=== PATIENT | female | born 1995 | race African-American/Black ===

== ENCOUNTER 2019-05-17 20:12 | Emergency (ER) | payer SELFPAY ==
[~2019-05-17] VITALS: Ht 165.1 cm; Wt 99.5 kg
[2019-05-17 20:19] VITALS: Ht 165.1 cm; Wt 99.5 kg
[2019-05-17 21:08] LABS: BASOPHIL % 0.3 % (0-2)
[2019-05-17 21:13] LABS: PLATELET COUNT 411 x10^3mcL (130-400); RED CELL DISTRIBUTION WIDTH 20.7 % (11.5-14.5)
[2019-05-17 21:15] LABS: CALCIUM 9.1 mg/dL (8.5-10.1); CARBON DIOXIDE 28.7 mmol/L (21-32); CHLORIDE SERUM 101 mmol/L (98-107); CREATININE SERUM 0.8 mg/dL (0.6-1.0); GFR1 > 60 mL/min; GLUCOSE SERUM 90 mg/dL (74-106); POTASSIUM SERUM 3.5 mmol/L (3.5-5.1); SODIUM SERUM 135 mmol/L (136-145)
[2019-05-17 21:23] LABS: rbc morphology (normal/abnorm) ABNORMAL (NORMAL)
[2019-05-17 23:46] LABS: UA SPECIFIC GRAVITY >=1.030 (1.005-1.035); microscopic required? YES; urine erythrocyte 3+ (NEGATIVE)
[2019-05-18 03:22] VITALS: BP 111/73
== END 2019-05-18 03:22 | disposition home or self-care (01) ==
LOC: ED 20:12
PROVIDERS: Emergency Medicine
DX: N93.9 Abnormal uterine and vaginal bleeding, unspecified (principal); R10.2 Pelvic and perineal pain; R10.30 Lower abdominal pain, unspecified
CPT/HCPCS: J2270

== ENCOUNTER 2019-05-18 19:44 | Emergency (ER) | payer SELFPAY ==
[~2019-05-18] VITALS: Ht 165.1 cm; Wt 90.5 kg
[2019-05-18 20:09] VITALS: Ht 165.1 cm; Wt 90.5 kg
[2019-05-18 22:27] VITALS: BP 119/41
== END 2019-05-18 22:27 | disposition home or self-care (01) ==
LOC: ED 19:44
DX: O03.9 Complete or unspecified spontaneous abortion without complication (principal); Z98.890 Other specified postprocedural states